=== PATIENT | female | born 1950 | race Caucasian/White ===

== ENCOUNTER → 2016-10-30 | Outpatient (CLI) | payer MEDICARE, OTHER ==
[~2016-10-30] MED LIST: AMBIEN 5MG TABLE5 MG PO; ASPIRIN 32325 MG/TAB PO; CHOLESTEROL MED; ZOLOFT25 MG PO
== END ==
LOC: MC.RAD 11:19
DX: Z12.31 Encounter for screening mammogram for malignant neoplasm of breast (principal)

== ENCOUNTER → 2018-02-15 | Outpatient (CLI) | payer MEDICARE, OTHER | LOC: MC.RAD 07:59 | DX: Z12.31 Encounter for screening mammogram for malignant neoplasm of breast (principal) ==

== ENCOUNTER → 2019-01-21 | Outpatient (CLI) | payer MEDICARE, OTHER | LOC: COL.PUL 08:00 | DX: R06.02 Shortness of breath (principal) ==

== ENCOUNTER → 2019-03-25 | Outpatient (CLI) | payer MEDICARE, OTHER | LOC: MC.RAD 03-13 07:15 | DX: Z12.31 Encounter for screening mammogram for malignant neoplasm of breast (principal) ==

== ENCOUNTER → 2020-10-07 | Outpatient (CLI) | payer OTHER, MEDICARE ==
[~2020-10-07] MED LIST changes: +B COMPLEX & B121 TAB PO; +CRESTOR 10MG10 MG PO; +CYMBALTA 60MG60 MG PO; +MULTI VITAMINS1 TAB PO; +OMEGA-3 1000 MG1 CAP PO; +OSCAL 500 TAB500 MG PO; +OSTEO-BI-FLEX 21 TAB PO; +PRESERVISION1 SGL PO; +TOPROL XL 25MG25 MG PO; +TYLENOL 500MG500 MG PO; +VITAMIND3 5000 PO; +[UNRECOGNIZED DRUG - OTHER] PO
== END ==
LOC: COL.RAD 09:46
DX: M47.818 Spondylosis without myelopathy or radiculopathy, sacral and sacrococcygeal region (principal)
CPT/HCPCS: G0260; J3301

== ENCOUNTER → 2021-01-04 | Outpatient (CLI) | payer MEDICARE, OTHER ==
[~2021-01-04] MED LIST changes: +AMOXICILLIN 8751 TAB PO; +ELIQUIS 5MG PO; +LOPRESSOR 225 MG/TAB PO
== END ==
LOC: COL.RAD 07:31
DX: M47.818 Spondylosis without myelopathy or radiculopathy, sacral and sacrococcygeal region (principal)
CPT/HCPCS: G0260; J3301

== ENCOUNTER → 2021-03-02 | Outpatient (CLI) | payer MEDICARE, OTHER | LOC: COL.RAD 09:59 | DX: M53.3 Sacrococcygeal disorders, not elsewhere classified (principal) | CPT/HCPCS: G0260; J3301 ==

== ENCOUNTER 2021-05-27 13:52 | Inpatient (IN) | payer MEDICARE, OTHER ==
[~2021-05-27] VITALS: Ht 165.1 cm; Wt 75.0 kg
[~2021-05-27 13:52] MED LIST changes: -AMOXICILLIN 8751 TAB PO; -B COMPLEX & B121 TAB PO; -CRESTOR 10MG10 MG PO; -CYMBALTA 60MG60 MG PO; -ELIQUIS 5MG PO; -LOPRESSOR 225 MG/TAB PO; -MULTI VITAMINS1 TAB PO; -OMEGA-3 1000 MG1 CAP PO; -OSCAL 500 TAB500 MG PO; -OSTEO-BI-FLEX 21 TAB PO; -PRESERVISION1 SGL PO; -TOPROL XL 25MG25 MG PO; -TYLENOL 500MG500 MG PO; -VITAMIND3 5000 PO; -[UNRECOGNIZED DRUG - OTHER] PO
[2021-05-27 14:36] LABS: BASO # 0.1 K/mm3 (0.0-0.2); BASO % 0.8 % (0.0-2.0); EOS # 0.2 K/mm3 (0.0-0.7); EOS % 2.9 % (0-4.0); GRAN # 3.6 K/mm3 (1.4-6.5); GRAN % 58.7 % (42.2-75.2); HEMATOCRIT 41.5 % (37.0-47.0); HEMOGLOBIN 13.6 g/dl (12.5-16.0); LYMPH # 1.8 K/mm3 (1.2-3.4); LYMPH % 29.6 % (20.0-51.0); MEAN CELL VOLUME 92 fl (80.0-100.0); MEAN CORPUSCULAR HEMOGLOBIN 30 pg (27.0-31.0); MEAN CORPUSCULAR HGB CONC 33 g/dl (33.0-37.0); MEAN PLATELET VOLUME 8.7 fl (7.4-10.4); MONO # 0.5 K/mm3 (0.1-0.6); MONO % 7.8 % (1.7-9.3); PLATELET COUNT 290 K/mm3 (130-400); REDCELL DISTRIBUTION WIDTH-CV 11.9 % (11.5-14.5)
[2021-05-27 14:48] LABS: CREATININE, serum 0.81 mg/dL (0.57-1.11)
[2021-05-27 14:49] LABS: ALBUMIN 3.7 gm/dL (3.4-4.8); BILIRUBIN,TOTAL 0.4 mg/dL (0.2-1.2); CALCIUM 9.1 mg/dL (8.4-10.2); MAGNESIUM 1.9 mg/dL (1.6-2.6); POTASSIUM 4.3 mmol/L (3.5-4.5)
[2021-05-27 14:51] LABS: PROTHROMBIN TIME 10.5 SECONDS (9.7-12.8); TROPONIN-I 0.02 ng/mL (0.00-0.033)
[2021-05-27] MEDS ORDERED: CRESTOR 10MG10 MG PO (15:36)
[2021-05-27] MEDS ORDERED: TOPROL XL 25MG25 MG PO (15:37)
[2021-05-27] MEDS ORDERED: CYMBALTA 60MG60 MG PO (15:37)
[2021-05-27] MEDS ORDERED: TYLENOL 500MG500 MG PO (15:38)
[2021-05-27] MEDS ORDERED: B COMPLEX & B121 TAB PO (15:39)
[2021-05-27] MEDS ORDERED: VITAMIND3 5000 PO (15:39)
[2021-05-27] MEDS ORDERED: OSCAL 500 TAB500 MG PO (15:40)
[2021-05-27] MEDS ORDERED: OMEGA-3 1000 MG1 CAP PO (15:40)
[2021-05-27] MEDS ORDERED: MULTI VITAMINS1 TAB PO (15:41)
[2021-05-27] MEDS ORDERED: OSTEO-BI-FLEX 21 TAB PO (15:41)
[2021-05-27] MEDS ORDERED: PRESERVISION1 SGL PO (15:42)
[2021-05-27 17:00] VITALS: BP 131/68; PULSE 96; TEMP 98
[2021-05-27 17:58] VITALS: PULSE 100
[2021-05-27 18:03] LABS: PARTIAL THROMBOPLASTIN TIME > 400.0 SECONDS (26.0-37.0)
--- NOTE | 2021-05-27 18:15 | NUR ---
Pt arrived to floor, resting in bed, doing well, has no symptoms of afib/rvr. Denies needs or chest pain, will give report to nightshift nurse who will resume care.
[2021-05-27] MEDS ORDERED: [UNRECOGNIZED DRUG - OTHER] PO (19:01)
--- NOTE | 2021-05-27 19:01 | NUR ---
Critical Hepxa recieved, called Leeann and will check at th appropriate time of 2030
[2021-05-27 19:58] VITALS: BP 102/65; PULSE 63; TEMP 98
--- NOTE | 2021-05-27 22:00 | NUR ---
Patient is resting in bed, alert and oriented x 4, irregular HR going from 60s to 110. O2 readings higher 80's lower 90's. Denies SOB. No cyanosis or chest pain. Heparin running at 13.5 ml/hr. Cardizem at 15mg/hr. Tele in place, afib. Assessment completed. No further needs at this time. Call light within reach.
[2021-05-28 00:19] VITALS: BP 116/64; PULSE 94; TEMP 98
[2021-05-28 04:24] VITALS: BP 123/65; PULSE 74; TEMP 97.2
--- NOTE | 2021-05-28 06:07 | NUR ---
Pt has had a calm night. Denies chest pain or SOB. HR WNL, Afib. Continues with heparin and cardizem drip. Report will be given to day RN.
[2021-05-28 06:39] LABS: BASO % 0.6 % (0.0-2.0); EOS # 0.2 K/mm3 (0.0-0.7); EOS % 2.3 % (0-4.0); GRAN # 3.5 K/mm3 (1.4-6.5); GRAN % 52.6 % (42.2-75.2); HEMATOCRIT 41.6 % (37.0-47.0); HEMOGLOBIN 13.7 g/dl (12.5-16.0); LYMPH # 2.5 K/mm3 (1.2-3.4); LYMPH % 37.3 % (20.0-51.0); MEAN CELL VOLUME 90 fl (80.0-100.0); MEAN CORPUSCULAR HEMOGLOBIN 30 pg (27.0-31.0); MEAN CORPUSCULAR HGB CONC 33 g/dl (33.0-37.0); MEAN PLATELET VOLUME 8.8 fl (7.4-10.4); MONO # 0.5 K/mm3 (0.1-0.6); PLATELET COUNT 292 K/mm3 (130-400)
[2021-05-28 07:00] LABS: CALCIUM 9.7 mg/dL (8.4-10.2); CHOLESTEROL RISK RATIO 3.2; CREATININE, serum 0.78 mg/dL (0.57-1.11); MAGNESIUM 1.9 mg/dL (1.6-2.6)
[2021-05-28 07:21] LABS: TROPONIN-I 0.01 ng/mL (0.00-0.033); TSH w REFLEX 1.767 uIU/mL (0.350-4.940)
[2021-05-28 07:44] VITALS: BP 134/95; PULSE 83; TEMP 97.7
--- NOTE | 2021-05-28 07:49 | NUR ---
HepXa level within goal range at 0.52, no rate change indicated at this time, will recheck Xa level at 1300
--- NOTE | 2021-05-28 08:48 | NUR ---
Assessment completed, alert/oriented, vital signs stable, heart irregular/ A.fib on tele / rate controlled in the 90's, she denies any chest pain or discomfort, denies feeling lightheaded or dizzy, lungs CTA/ no resp.difficulty noted, Cardizem and Heparin IV gtts infusing, Cardiology consulted, patient denies other needs at this time, we will continue to monitor
--- NOTE | 2021-05-28 10:27 | NUR ---
Plan is to return home with spouse Michele or alternate contact , sister Bonnie Shook. SW met with patient about care. Patient reports that her pcp is Dr. Lowe and Dr. Jiang. Patient shares that they do not have any DME use but has a cane. Patient denies having any care concerns and does not believe they need additional support at home, is DPOA and will transport home. Patient reports that her heart doctor wanted to monitor but did not find anything. Will follow for supports. Patient denies being in any pain.
[2021-05-28 12:51] VITALS: BP 112/50; PULSE 86; TEMP 97.9
[2021-05-28 16:05] VITALS: BP 106/43; PULSE 60; TEMP 97.6
[2021-05-28 20:07] VITALS: BP 121/51; PULSE 69; TEMP 98
--- NOTE | 2021-05-28 20:13 | NUR ---
Patient is resting in bed, alert and oriented x 4, VSS, denies pain, nausea or vimiting. HR <100. Tele in place, NSR. Clifford runjadeg. 1L O2 NC. Assessment completed. No further needs at this time. Call light within reach.
[2021-05-29 01:27] VITALS: BP 133/58; PULSE 67; TEMP 97.9
[2021-05-29 04:32] VITALS: BP 133/58; PULSE 68; TEMP 98.6
[2021-05-29 06:35] VITALS: BP 133/58; PULSE 68; TEMP 98.7
--- NOTE | 2021-05-29 06:54 | NUR ---
Patient has had a calm night, HR <100 NSR. All needs met. Shift report given to day RN.
[2021-05-29 07:01] LABS: BASO % 0.7 % (0.0-2.0); EOS # 0.2 K/mm3 (0.0-0.7); EOS % 2.8 % (0-4.0); GRAN # 3.7 K/mm3 (1.4-6.5); GRAN % 59.7 % (42.2-75.2); HEMATOCRIT 39.7 % (37.0-47.0); HEMOGLOBIN 12.6 g/dl (12.5-16.0); LYMPH # 1.7 K/mm3 (1.2-3.4); LYMPH % 28.3 % (20.0-51.0); MEAN CELL VOLUME 94 fl (80.0-100.0); MEAN CORPUSCULAR HEMOGLOBIN 30 pg (27.0-31.0); MEAN CORPUSCULAR HGB CONC 32 g/dl (33.0-37.0); MEAN PLATELET VOLUME 8.8 fl (7.4-10.4); MONO # 0.5 K/mm3 (0.1-0.6); MONO % 8.2 % (1.7-9.3); PLATELET COUNT 278 K/mm3 (130-400); RED BLOOD COUNT 4.22 M/mm3 (4.10-5.30); REDCELL DISTRIBUTION WIDTH-CV 12.2 % (11.5-14.5)
[2021-05-29 07:18] LABS: CALCIUM 9.9 mg/dL (8.4-10.2); CREATININE, serum 0.73 mg/dL (0.57-1.11); POTASSIUM 4.1 mmol/L (3.5-4.5)
[2021-05-29 07:40] VITALS: BP 103/48; PULSE 75; TEMP 97.6
[2021-05-29] MEDS ORDERED: LOPRESSOR 225 MG/TAB PO (09:59)
[2021-05-29] MEDS ORDERED: ELIQUIS 5MG PO (09:59)
[2021-05-29] MEDS ORDERED: AMOXICILLIN 8751 TAB PO (10:11)
[2021-05-29 11:11] VITALS: BP 115/76; PULSE 69; TEMP 98.4
--- NOTE | 2021-05-29 12:07 | NUR ---
Assessment completed, alert/oriented, vital signs stable, denies pain or discomfort, heart RRR/ SR on tele, lungS CTA/ removed O2 and sats are staying above 90%, I encourage cough/deep breathing exercises as chest CT showed some basilar atelectasis, we are planning to discharge today/ pharmacy is working to get patient set up with Eliquis or other anticoagulant pending insurance coverage, she dnies other needs at this time
--- NOTE | 2021-05-29 13:43 | NUR ---
Discharge orders discussed with the patient, instructed to take meds as prescribed, and scritps /voucher for Eliquis sent to pharmacy for her, instructed to call PCP and Cardiology to set up follow up appointments for a 1 week time frame, IV sites x2 removed, Tele removed, encouraged coughing/deep breathing exercises at home, Incentive spirometer sent with patient as well, patient is ambulatory and leaving with her , GREG Dhillon escorted her out the door
== END 2021-05-29 13:44 | disposition home or self-care (01) | DRG 310 ==
LOC: COL.ER 13:52 → MEDICAL 15:01
PROVIDERS: Emergency Medicine; Physician Assistant; ADMIT Internal Medicine
DX: I48.0 Paroxysmal atrial fibrillation (principal); I10 Essential (primary) hypertension; F32.A Depression, unspecified; E78.5 Hyperlipidemia, unspecified
CPT/HCPCS: 99223-AI; 99232-AI; 99239; J1644; Q9967

== ENCOUNTER 2021-07-20 15:06 | Emergency (ER) | payer MEDICARE, OTHER ==
[~2021-07-20] VITALS: Ht 165.1 cm; Wt 73.6 kg
[~2021-07-20 15:06] MED LIST changes: +AMOXICILLIN 8751 TAB PO; +B COMPLEX & B121 TAB PO; +CRESTOR 10MG10 MG PO; +CYMBALTA 60MG60 MG PO; +ELIQUIS 5MG PO; +LOPRESSOR 225 MG/TAB PO; +MULTI VITAMINS1 TAB PO; +OMEGA-3 1000 MG1 CAP PO; +OSCAL 500 TAB500 MG PO; +OSTEO-BI-FLEX 21 TAB PO; +PRESERVISION1 SGL PO; +TOPROL XL 25MG25 MG PO; +TYLENOL 500MG500 MG PO; +VITAMIND3 5000 PO; +[UNRECOGNIZED DRUG - OTHER] PO
[2021-07-20 16:33] LABS: BASO # 0.1 K/mm3 (0.0-0.2); BASO % 0.8 % (0.0-2.0); EOS # 0.2 K/mm3 (0.0-0.7); EOS % 2.2 % (0.0-4.0); GRAN # 6.1 K/mm3 (1.4-6.5); GRAN % 66.8 % (42.2-75.2); HEMATOCRIT 41.9 % (37.0-47.0); HEMOGLOBIN 13.5 g/dl (12.5-16.0); LYMPH % 22.2 % (20.0-51.0); MEAN CELL VOLUME 90 fl (80.0-100.0); MEAN CORPUSCULAR HEMOGLOBIN 29 pg (27-31); MEAN CORPUSCULAR HGB CONC 32 g/dl (33.0-37.0); MEAN PLATELET VOLUME 8.8 fl (7.4-10.4); MONO # 0.7 K/mm3 (0.1-0.6); MONO % 7.8 % (1.7-9.3); PLATELET COUNT 313 K/mm3 (130-400); RED BLOOD COUNT 4.67 M/mm3 (4.10-5.30); REDCELL DISTRIBUTION WIDTH-CV 12.3 % (11.5-14.5)
[2021-07-20 16:41] LABS: INR 4.6 (0.8-3.0)
[2021-07-20 16:43] LABS: PARTIAL THROMBOPLASTIN TIME 64.1 SECONDS (26.0-37.0)
[2021-07-20 16:47] LABS: ALBUMIN 3.6 gm/dL (3.4-4.8); BILIRUBIN,TOTAL 0.3 mg/dL (0.2-1.2); C-REACTIVE PROTEIN 0.57 mg/dL (0.00-0.50); CALCIUM 9.1 mg/dL (8.4-10.2); CREATININE, serum 0.88 mg/dL (0.57-1.11); POTASSIUM 4.6 mmol/L (3.5-4.5); PROTHROMBIN TIME 52.3 SECONDS (9.7-12.8); TOTAL PROTEIN 6.9 gm/dL (6.2-8.1)
[2021-07-20 17:38] LABS: COLLECTION METHOD CLEAN CATCH
[2021-07-20 18:04] LABS: SQUAMOUS EPITHELIAL None Seen /hpf (0-10); URINE BACTERIA Many /hpf (NONE SEEN); URINE RBC >50 /hpf (0-2)
[2021-07-20 18:05] LABS: URINE APPEARANCE Cloudy (CLEAR/HAZY); URINE COLOR Red (YELLOW)
[2021-07-20 18:10] LABS: PH 5 (5-8); URINE PROTEIN(semi-quant) 2+ (NEGATIVE)
[2021-07-20 18:11] LABS: URINE BILIRUBIN Negative (NEGATIVE); URINE BLOOD 3+ (NEGATIVE); URINE GLUCOSE Negative (NEGATIVE); URINE KETONE 1+ (NEGATIVE); URINE LEUKOCYTE ESTERASE 1+ (NEGATIVE); URINE NITRATE Negative (NEGATIVE); URINE UROBILINOGEN Negative (NEGATIVE)
[2021-07-20] MEDS ORDERED: CEFTIN500 MG PO (18:25)
[2021-07-20 18:47] VITALS: BP 133/75; PULSE 74; TEMP 98.2
== END 2021-07-20 18:47 | disposition home or self-care (01) ==
LOC: COL.ER 15:06
PROVIDERS: Emergency Medicine
DX: N39.0 Urinary tract infection, site not specified (principal); R79.0 Abnormal level of blood mineral; J06.9 Acute upper respiratory infection, unspecified; I10 Essential (primary) hypertension; I48.91 Unspecified atrial fibrillation; F32.A Depression, unspecified; Z88.2 Allergy status to sulfonamides; Z79.01 Long term (current) use of anticoagulants; Z79.899 Other long term (current) drug therapy
CPT/HCPCS: J0696

== ENCOUNTER → 2022-05-03 | Outpatient (CLI) | payer MEDICARE, OTHER ==
[~2022-05-03] MED LIST changes: +CEFTIN500 MG PO
== END ==
LOC: MC.RAD 12:48
DX: R92.0 Mammographic microcalcification found on diagnostic imaging of breast (principal)

== ENCOUNTER 2023-12-09 13:11 | Inpatient (IN) | payer MEDICARE, OTHER ==
[~2023-12-09] VITALS: Ht 167.6 cm; Wt 75.4 kg
[~2023-12-09 13:11] MED LIST changes: +BENICAR 20MG TA20 MG PO; +CRANBERRY500 M3 PO; +FLONASE NASAL S16 GM NS; +FOSAMAX 70MG TA70 MG PO; +NATURAL FISH1200 MG PO; +TOPROL XL 50MG50 MG PO; +XARELTO20 MG PO
[2023-12-11] VITALS (9 sets, daily range): BP systolic 116–148; BP diastolic 64–79; PULSE 61–76; TEMP 98–98.6
--- NOTE | 2023-12-11 03:28 | NUR ---
An Electronic Health Record (EHR) downtime event occurred during this patients care. For legal medical record information generated during the downtime period, please reference the patient's legal medical record. Paper or scanned documentation has been incorporated into the legal medical record which is maintained in accordance with Health Information Management (HIM) and record retention policies.
[2023-12-11] MEDS ORDERED: Docusate Sodium 100 MG CAP PO PRN (04:15)
[2023-12-11] MEDS ORDERED: Polyethylene Glycol 3350 17 GM PDS PO PRN (04:15)
[2023-12-11] MEDS ORDERED: Acetaminophen 325 MG TAB PO PRN (04:15)
[2023-12-11] MEDS ORDERED: Ondansetron 4 MG/2 ML VIAL IV PRN (04:15)
--- NOTE | 2023-12-11 06:00 | NUR ---
LATE ENTRY FOR 12/10/23 1850: BEDSIDE REPORT RECIEVED FROM ROVERTO GARZA. PATIENT RESTING IN BED WITH TV ON WITH NO FAMILY PRESENT WITH NO ACUTE DISTRESS NOTED. PATIENT ON ROOM AIR. INT TO RIGHT FOREARM AND LEFT AC INTACT WITH NO COMPLICATIONS NOTED. PATIENT DENIES ANY NEEDS. BED IN LOW POSITION WITH WHEELS LOCKED WITH RAILS UP X2 AND CALL LIGHT WITHIN REACH. 2100: PATIENT RESTING IN BED WITH TV ON WITH NO FAMILY PRESENT WITH NO ACUTE DISTRESS NOTED. PATIENT ON ROOM AIR. INT TO RIGHT FOREARM AND LEFT AC INTACT WITH NO COMPLICATIONS NOTED. ASSESSMENT AND MEDICATION ADMINISTRATION COMPLETED AT THIS TIME. PATIENT TOLERATED WELL. PATIENT BRUSHED OWN TEETH. PATIENT DENIES ANY NEEDS AT THIS TIME. BED IN LOW POSITION WITH WHEELS LOCKED WITH RAILS UP X2 AND CALL LIGHT WITHIN REACH.
[2023-12-11] MEDS ORDERED: Insulin Lispro (HumaLOG) SQ SCH (08:00)
--- NOTE | 2023-12-11 08:38 | NUR ---
On 12/10/23, criminal justice social worker attended multidisiplinary rounding and met with patient and spouse (Michele Connor [phone]) to discuss discharge planning. Patient states that she is retired and lives with her spouse, 4 cats and 2 dogs. Patient states she is independent with her activities of daily living. Patient plans to return home upon discharge. Patient states her new physician is Dr Novak dn she hasn't met her yet. Patient confirms that she has Medicare and [facility] and has great coverage for her medications. Patient states she has advance directives and worker encouraged her to bring them into the hospital so that they can be placed in her electronic record. Patient is moving, this date, to the medicare floor. Discharge plan: Home with spouse.
[2023-12-11] MEDS ORDERED: Calcium Carb/Vit D3 500 mg-200 Units TAB PO SCH (09:00)
[2023-12-11] MEDS ORDERED: Omega-3 Fatty Acid Esters (OTC) 1,000 MG CAP PO SCH (09:00)
[2023-12-11] MEDS ORDERED: Cholecalciferol (Vit D3) 5000 Units Capsule PO SCH (09:00)
[2023-12-11] MEDS ORDERED: Fluticasone Nasal 50 MCG/Spray 16 GM BOTTLE NS SCH (09:00)
[2023-12-11] MEDS ORDERED: DULoxetine 60 MG CAP PO SCH (09:00)
--- NOTE | 2023-12-11 10:19 | NUR ---
Assessment completed. Pt sitting up in chair with legs elevated. A/O x4. Tele NSR. RLE with +[address] Linares aware. Denies pain or needs.
--- NOTE | 2023-12-11 11:34 | NUR ---
D: Telephone Information Supervisor stopped by room on rounds. A: Pt was resting and content. Pt has no needs right now. Pt appreciated the visit. P: Telephone Information Supervisor informed pt that if she needed anything from the nurse companion area to let her nurse know. Telephone Information Supervisor will follow up as needed.
[2023-12-11] MEDS ORDERED: GLUCOPHAGE500 MG/TAB PO (15:42)
[2023-12-11] MEDS ORDERED: NEXIUM 20MG20 MG PO (15:44)
[2023-12-11] MEDS ORDERED: VITAMIN B12 1541 TAB PO (15:45)
[2023-12-11] MEDS ORDERED: VITAMIN C500 MG PO (15:46)
[2023-12-11] MEDS ORDERED: ASPIRIN 81M81 MG/TA2 PO (15:47)
[2023-12-11] MEDS ORDERED: RETIN-A CR0.05 20GM TP (15:48)
--- NOTE | 2023-12-11 18:54 | NUR ---
PATIENT RESTING IN BED WITH TV ON WITH NO FAMILY PRESENT WITH NO ACUTE DISTRESS NOTED. PATIENT ON ROOM AIR. INT TO RIGHT FOREARM AND LEFT AC INTACT WITH NO COMPLICATIONS NOTED. TELEMETRY INTACT. BEDSIDE SHIFT REPORT COMPLETED WITH RAVEN GARZA AT THIS TIME. PATIENT DENIES ANY NEEDS. BED IN LOW POSITION WITH WHEELS LOCKED WITH RAILS UP X2 AND CALL LIGHT WITHIN REACH.
--- NOTE | 2023-12-11 19:18 | NUR ---
Pt resting in bed. Denies pain or needs. VD to RLE is scheduled for tomorrow am. Bedside report given to GREG Gleason.
[2023-12-11] MEDS ORDERED: Atorvastatin 20 MG TAB PO SCH (21:00)
--- NOTE | 2023-12-11 21:10 | NUR ---
PATIENT RESTING SITTING UP IN BED WITH TV ON WITH NO FAMILY PRESENT WITH NO ACUTE DISTRESS NOTED. PATIENT ON ROOM AIR. INT TO RIGHT FOREARM AND LEFT AC INTACT WITH NO COMPLICATIONS NOTED. ASSESSMENT AND MEDICATION ADMINISTRATION COMPLETED AT THIS TIME. PATIENT TOLERATED WELL. PATENT DENIES ANY PAIN OR NEEDS AT THIS TIME. BED IN LOW POSITION WITH WHEELS LOCKED WITH RAILS UP X2 AND CALL LIGHT WITHIN REACH.
[2023-12-12] VITALS (7 sets, daily range): BP systolic 104–128; BP diastolic 66–75; PULSE 67–71; TEMP 98.2
--- NOTE | 2023-12-12 08:56 | NUR ---
Assessment completed. US completed VD to RLE. Denies pain or needs.
[2023-12-12] MEDS ORDERED: Cephalexin 500 MG CAP PO SCH (09:00)
[2023-12-12] MEDS ORDERED: CEPHALEXIN500 M1 PO (09:57)
[2023-12-12] MEDS ORDERED: BETAPACE 80MG80 MG PO (09:58)
--- NOTE | 2023-12-12 11:01 | NUR ---
Notified lab to add on Magnesium and lab requisition taken to lab. Ashli Starks RN notified of BMP results and that Magnesium is pending.
--- NOTE | 2023-12-12 13:55 | NUR ---
Magnesium infusion completed. INT to RFA and LAC d/c'd with cath tip intact. Tele d/c'd. Discharge instructions reviewed with patient-verbalizes understanding. Pt escorted via w/c to private vehicle and discharged home with spouse.
--- NOTE | 2023-12-12 16:06 | NUR ---
restuarant crew worker was notified patient is medically ready for discharge. SW met with patient to review the important message from Medicare. Patient understood and signed form. SW made a copy, placed original in chart and provided copy to patient. Discharge plan: Home
== END 2023-12-12 13:55 | disposition home or self-care (01) | DRG 262 ==
LOC: COL.ER 13:11 → ICU 16:00 → MEDICAL 16:00
PROVIDERS: ADMIT Hospitalist
PROC: 0JH632Z Insertion of Monitoring Device into Chest Subcutaneous Tissue and Fascia, Percutaneous Approach (ICD-10-PCS; principal; 2023-12-12)
DX: I48.91 Unspecified atrial fibrillation (principal); M81.0 Age-related osteoporosis without current pathological fracture; F32.A Depression, unspecified; E78.5 Hyperlipidemia, unspecified; I10 Essential (primary) hypertension; I08.0 Rheumatic disorders of both mitral and aortic valves; E11.9 Type 2 diabetes mellitus without complications; I47.19 Other supraventricular tachycardia; K21.9 Gastro-esophageal reflux disease without esophagitis; Z95.818 Presence of other cardiac implants and grafts; Z88.2 Allergy status to sulfonamides; Z88.8 Allergy status to other drugs, medicaments and biological substances
CPT/HCPCS: C1764; J3475